=== PATIENT | male | born 1970 | race Caucasian/White ===

== ENCOUNTER 2018-05-30 17:19 | Emergency (ER) | payer MEDICAID ==
[2018-05-30] MEDS: LIDOCAINE 1% (MPF) 5 ML VIAL INFIL (20:38)
== END 2018-05-30 21:49 | disposition home or self-care (01) ==
LOC: FTE 17:19
DX: L72.9 Follicular cyst of the skin and subcutaneous tissue, unspecified (principal)
CPT/HCPCS: 10060; 99282-25

== ENCOUNTER 2018-07-02 08:05 | Emergency (ER) | payer MEDICAID ==
[2018-07-02] MEDS: DIPHTH/TET/ACEL PERTUSS (ADULT) 0.5 ML VIAL IM* (08:29)
== END 2018-07-02 08:37 | disposition home or self-care (01) ==
LOC: FTE 08:05
DX: L08.9 Local infection of the skin and subcutaneous tissue, unspecified (principal); F17.210 Nicotine dependence, cigarettes, uncomplicated; Z23 Encounter for immunization
CPT/HCPCS: 90471; 90715; 99283-25

== ENCOUNTER 2018-09-03 08:03 | Emergency (ER) | payer MEDICAID ==
[2018-09-03] MEDS: CYCLOBENZAPRINE 10 MG TAB PO (08:23)
[2018-09-03] MEDS: KETOROLAC 30 MG INJ IM (08:24)
== END 2018-09-03 08:43 | disposition home or self-care (01) ==
LOC: FTE 08:03
DX: M54.41 Lumbago with sciatica, right side (principal); F17.210 Nicotine dependence, cigarettes, uncomplicated; M54.42 Lumbago with sciatica, left side; G89.29 Other chronic pain
CPT/HCPCS: 96372; 99284-25